=== PATIENT | male | born 1965 | race Caucasian/White ===

== ENCOUNTER 2017-07-18 07:46 | Emergency (ER) | payer SELFPAY ==
[~2017-07-18] VITALS: Ht 177.8 cm; Wt 86.2 kg
[2017-07-18] MEDS ORDERED: Ultram50 MG PO (10:28)
== END 2017-07-18 10:34 | disposition home or self-care (01) ==
LOC: ER 07:46
DX: S61.412A Laceration without foreign body of left hand, initial encounter (principal); Z23 Encounter for immunization; F17.210 Nicotine dependence, cigarettes, uncomplicated; W29.2XXA Contact with other powered household machinery, initial encounter
CPT/HCPCS: 12004; 90471; 90714; 99283; L3917

== ENCOUNTER 2017-09-26 20:40 | Emergency (ER) | payer MEDICAID ==
[~2017-09-26] VITALS: Ht 180.3 cm; Wt 101.6 kg
[~2017-09-26 20:40] MED LIST: Ultram50 MG PO
[2017-09-26] MEDS ORDERED: Neurontin 300300 MG PO (23:09)
[2017-09-26] MEDS ORDERED: Naprosyn500 MG PO (23:09)
== END 2017-09-26 23:19 | disposition home or self-care (01) ==
LOC: ER 20:40
DX: M54.12 Radiculopathy, cervical region (principal)
CPT/HCPCS: 72040; 99283-25

== ENCOUNTER 2019-01-28 08:09 | Emergency (ER) | payer SELFPAY ==
[~2019-01-28] VITALS: Ht 180.3 cm; Wt 99.8 kg
[~2019-01-28 08:09] MED LIST changes: +Anusol-HC 2.5%30 GM EXT; +Bactrim Ds Tab1 EACH PO; +Naprosyn500 MG PO; +Neurontin 300300 MG PO
[2019-01-28 09:37] LABS: BASOPHILS ABSOLUTE AUTO 0.07 K/mm3 (0.00-0.23); BASOPHILS PERCENT AUTO 1 % (0-2); EOSINOPHILS ABSOLUTE AUTO 0.11 K/mm3 (0.00-0.68); EOSINOPHILS PERCENT AUTO 1 % (0-6); Hemoglobin 13.7 g/dL (13.5-17.5); IMMATURE GRAN ABSOLUTE AUTO 0.02 K/mm3 (0.00-0.10); IMMATURE GRAN PERCENT AUTO 0 % (0-1); LYMPHOCYTES ABSOLUTE AUTO 2.84 K/mm3 (0.84-5.20); LYMPHOCYTES PERCENT AUTO 27 % (21-46); MONOCYTES ABSOLUTE AUTO 1.22 K/mm3 (0.16-1.47); MONOCYTES PERCENT AUTO 12 % (4-13); Mean Corpuscular HGB Conc 33.4 g/dL (31.5-36.5); Mean Corpuscular Volume 90 fL (80-100); Mean Platelet Volume 10.5 fL (9.1-12.4); NEUTROPHILS ABSOLUTE AUTO 6.37 K/mm3 (1.96-9.15); NEUTROPHILS PERCENT AUTO 60 % (41-73); Platelet Count 326 K/mm3 (150-400); RDW Coefficient Variation 12.9 % (11.7-14.2); RDW Standard Deviation 42.4 fL (35.1-46.3); Red Blood Cell Count 4.57 M/mm3 (4.30-5.90); White Blood Cell Count 10.63 K/mm3 (4.00-11.30)
[2019-01-28 09:51] LABS: Alanine Aminotransfer (ALT/SGP 19 U/L (12-78); Albumin, Blood 3.1 g/dL (3.4-5.0); Albumin/Globulin Ratio 0.7 (0.8-1.8); Alk Phos 71 U/L (50-136); Anion Gap 4 mmol/L (6-16); Aspartate Aminotrans (AST/SGOT 11 U/L (12-37); Bilirubin, Total 0.3 mg/dL (0.1-1.0); Blood Urea Nitrogen 12 mg/dL (8-24); Bun/Creatinine Ratio 14.8 (12.0-20.0); CO2, Blood 27 mmol/L (21-32); Calcium, Blood 8.8 mg/dL (8.5-10.1); Chloride, Blood 105 mmol/L (98-108); Creatinine, Blood 0.81 mg/dL (0.60-1.20); Globulin, Blood 4.2 g/dL (2.2-4.0); Glomerular Filtration Rate >60 (60-); Glucose, Blood 100 mg/dL (70-99); Potassium, Blood 3.5 mmol/L (3.5-5.5); Sodium, Blood 136 mmol/L (136-145); Total Protein, Blood 7.3 g/dL (6.4-8.2)
[2019-01-28] MEDS ORDERED: CEPH500 PO (10:06)
[2019-01-28] MEDS ORDERED: IBU800 MG PO (10:06)
[2019-01-28] MEDS ORDERED: Monodox100 MG PO (10:06)
== END 2019-01-28 11:01 | disposition home or self-care (01) ==
LOC: ER 08:09
PROVIDERS: Physician Assistant
DX: L03.114 Cellulitis of left upper limb (principal); F17.210 Nicotine dependence, cigarettes, uncomplicated
CPT/HCPCS: 36415; 73080; 80053; 83605; 85025; 96365; 96375; 99283-25; J1885; J2543

== ENCOUNTER 2019-11-27 17:31 | Emergency (ER) | payer SELFPAY ==
[~2019-11-27] VITALS: Ht 180.3 cm; Wt 99.8 kg
[~2019-11-27 17:31] MED LIST changes: +CEPH500 PO; +IBU800 MG PO; +Monodox100 MG PO
[2019-11-27] MEDS ORDERED: Aspir 8181 MG PO (18:05)
[2019-11-27] MEDS ORDERED: NAPR500 PO (18:06)
[2019-11-27] MEDS ORDERED: KEFLEX500 MG PO (18:13)
[2019-11-27] MEDS ORDERED: Bactrim Ds Tab1 EACH PO (18:13)
== END 2019-11-27 18:27 | disposition home or self-care (01) ==
LOC: ER 17:31
DX: L03.115 Cellulitis of right lower limb (principal); I10 Essential (primary) hypertension; F17.210 Nicotine dependence, cigarettes, uncomplicated; Z79.82 Long term (current) use of aspirin
CPT/HCPCS: 99283; A9270-GY

== ENCOUNTER 2020-11-23 02:31 | Emergency (ER) | payer SELFPAY ==
[~2020-11-23] VITALS: Ht 180.3 cm; Wt 90.7 kg
[~2020-11-23 02:31] MED LIST changes: +Aspir 8181 MG PO; +KEFLEX500 MG PO; +NAPR500 PO
[2020-11-23 03:45] LABS: SARS-Cov-2 (COVID-19) PCR, MMC NEGATIVE (NEGATIVE)
[2020-11-23] MEDS ORDERED: HYDCOR2.5C PR (05:05)
== END 2020-11-23 06:10 | disposition home or self-care (01) ==
LOC: ER 02:31
PROVIDERS: Emergency Medicine
DX: K62.5 Hemorrhage of anus and rectum (principal); K64.9 Unspecified hemorrhoids; I10 Essential (primary) hypertension; F17.210 Nicotine dependence, cigarettes, uncomplicated; Z20.822 Contact with and (suspected) exposure to COVID-19; Z79.82 Long term (current) use of aspirin
CPT/HCPCS: 72170; 74019; 99284-25; U0004

== ENCOUNTER 2021-06-19 12:54 | Inpatient (IN) | payer OTHER ==
[~2021-06-19] VITALS: Ht 180.3 cm; Wt 95.5 kg
[~2021-06-19 12:54] MED LIST changes: +HYDCOR2.5C PR
[2021-06-19 13:34] LABS: BASOPHILS ABSOLUTE AUTO 0.08 K/mm3 (0.00-0.23); BASOPHILS PERCENT AUTO 1 % (0-2); EOSINOPHILS PERCENT AUTO 1 % (0-6); Hematocrit 23.2 % (37.0-53.0); Hemoglobin 6.7 g/dL (13.5-17.5); IMMATURE GRAN ABSOLUTE AUTO 0.06 K/mm3 (0.00-0.10); IMMATURE GRAN PERCENT AUTO 0 % (0-1); LYMPHOCYTES ABSOLUTE AUTO 1.88 K/mm3 (0.84-5.20); LYMPHOCYTES PERCENT AUTO 14 % (21-46); MONOCYTES ABSOLUTE AUTO 0.93 K/mm3 (0.16-1.47); MONOCYTES PERCENT AUTO 7 % (4-13); Mean Corpuscular HGB 21.1 pg (26.0-34.0); Mean Corpuscular HGB Conc 28.9 g/dL (31.5-36.5); Mean Corpuscular Volume 73 fL (80-100); Mean Platelet Volume 9.4 fL (9.1-12.4); NEUTROPHILS ABSOLUTE AUTO 10.65 K/mm3 (1.96-9.15); NEUTROPHILS PERCENT AUTO 78 % (41-73); Platelet Count 674 K/mm3 (150-400); RDW Coefficient Variation 16.9 % (11.7-14.2); RDW Standard Deviation 44.5 fL (35.1-46.3); Red Blood Cell Count 3.18 M/mm3 (4.30-5.90)
[2021-06-19 13:51] LABS: Alanine Aminotransfer (ALT/SGP 10 U/L (12-78); Albumin, Blood 2.7 g/dL (3.4-5.0); Albumin/Globulin Ratio 0.5 (0.8-1.8); Alk Phos 90 U/L (50-136); Anion Gap 8 mmol/L (6-16); Aspartate Aminotrans (AST/SGOT 4 U/L (12-37); Bilirubin, Total 0.2 mg/dL (0.1-1.0); Blood Urea Nitrogen 9 mg/dL (8-24); Bun/Creatinine Ratio 12.5 (12.0-20.0); CO2, Blood 24 mmol/L (21-32); Calcium, Blood 8.9 mg/dL (8.5-10.1); Chloride, Blood 102 mmol/L (98-108); Creatinine, Blood 0.72 mg/dL (0.60-1.20); Globulin, Blood 5.3 g/dL (2.2-4.0); Glomerular Filtration Rate >60 (60-); Glucose, Blood 158 mg/dL (70-99); Potassium, Blood 3.5 mmol/L (3.5-5.5); Sodium, Blood 134 mmol/L (136-145)
[2021-06-19 15:26] LABS: Influenza A, PCR NEGATIVE (NEGATIVE); Influenza B, PCR NEGATIVE (NEGATIVE); Resp Syncytial Virus, PCR NEGATIVE (NEGATIVE); SARS-Cov-2 (COVID-19) PCR, MMC NEGATIVE (NEGATIVE)
[2021-06-19 18:30] LABS: BASOPHILS ABSOLUTE AUTO 0.06 K/mm3 (0.00-0.23); BASOPHILS PERCENT AUTO 0 % (0-2); EOSINOPHILS PERCENT AUTO 1 % (0-6); Hematocrit 20.4 % (37.0-53.0); IMMATURE GRAN ABSOLUTE AUTO 0.07 K/mm3 (0.00-0.10); IMMATURE GRAN PERCENT AUTO 1 % (0-1); LYMPHOCYTES ABSOLUTE AUTO 2.59 K/mm3 (0.84-5.20); LYMPHOCYTES PERCENT AUTO 18 % (21-46); MONOCYTES PERCENT AUTO 9 % (4-13); Mean Corpuscular HGB 20.6 pg (26.0-34.0); Mean Corpuscular HGB Conc 28.4 g/dL (31.5-36.5); Mean Corpuscular Volume 73 fL (80-100); Mean Platelet Volume 9.3 fL (9.1-12.4); NEUTROPHILS ABSOLUTE AUTO 10.03 K/mm3 (1.96-9.15); NEUTROPHILS PERCENT AUTO 72 % (41-73); Platelet Count 609 K/mm3 (150-400); RDW Coefficient Variation 16.8 % (11.7-14.2); RDW Standard Deviation 44.6 fL (35.1-46.3); Red Blood Cell Count 2.81 M/mm3 (4.30-5.90); White Blood Cell Count 14.05 K/mm3 (4.00-11.30)
[2021-06-19 18:33] LABS: Hemoglobin 5.8 g/dL (13.5-17.5)
[2021-06-19 21:42] LABS: Hemoglobin 6.4 g/dL (13.5-17.5)
[2021-06-20 02:09] LABS: BASOPHILS ABSOLUTE AUTO 0.07 K/mm3 (0.00-0.23); BASOPHILS PERCENT AUTO 1 % (0-2); EOSINOPHILS ABSOLUTE AUTO 0.19 K/mm3 (0.00-0.68); EOSINOPHILS PERCENT AUTO 2 % (0-6); Hematocrit 23.1 % (37.0-53.0); Hemoglobin 7.1 g/dL (13.5-17.5); IMMATURE GRAN ABSOLUTE AUTO 0.08 K/mm3 (0.00-0.10); IMMATURE GRAN PERCENT AUTO 1 % (0-1); LYMPHOCYTES ABSOLUTE AUTO 2.28 K/mm3 (0.84-5.20); LYMPHOCYTES PERCENT AUTO 19 % (21-46); MONOCYTES ABSOLUTE AUTO 1.22 K/mm3 (0.16-1.47); MONOCYTES PERCENT AUTO 10 % (4-13); Mean Corpuscular HGB 22.8 pg (26.0-34.0); Mean Corpuscular HGB Conc 30.7 g/dL (31.5-36.5); Mean Corpuscular Volume 74 fL (80-100); Mean Platelet Volume 9.7 fL (9.1-12.4); NEUTROPHILS ABSOLUTE AUTO 7.93 K/mm3 (1.96-9.15); NEUTROPHILS PERCENT AUTO 67 % (41-73); Platelet Count 568 K/mm3 (150-400); RDW Standard Deviation 47.6 fL (35.1-46.3); Red Blood Cell Count 3.12 M/mm3 (4.30-5.90); White Blood Cell Count 11.77 K/mm3 (4.00-11.30)
--- NOTE | 2021-06-20 03:20 | NUR ---
PT IS A&OX4, VSS, INDEPENDENT WITH ADLS AND IS ABLE TO MAKED NEEDS KNOWN. PT ARRIVES TO SURGICAL FLOOR FROM THE ED FOR AN ABSCESS AND POSSIBLE GI BLEED. H&H WAS 5.8 IN THE ED, 1 UNIT OF PRBC STARTED PRIOR TO ARRIVAL, 1 UNIT GIVEN ON THE FLOOR. H&H IS 7.1 UPON RECHECK. PT IS DROWSEY AND SLEEPS MOST OF THE NIGHT. ON CIWA FOR ALCOHOL USE, LOW SCORES, NO ATIVAN NEEDED. PT HAS BEEN NPO SINCE MIDNIGHT. WILL CONTINUE TO MONITOR THIS PATIENT FOR ANY ACUTE CHANGES.
[2021-06-20 04:38] LABS: Alanine Aminotransfer (ALT/SGP 9 U/L (12-78); Albumin, Blood 2.3 g/dL (3.4-5.0); Albumin/Globulin Ratio 0.5 (0.8-1.8); Alk Phos 74 U/L (50-136); Anion Gap 6 mmol/L (6-16); Aspartate Aminotrans (AST/SGOT 6 U/L (12-37); Bilirubin, Total 0.8 mg/dL (0.1-1.0); Blood Urea Nitrogen 7 mg/dL (8-24); CO2, Blood 24 mmol/L (21-32); Calcium, Blood 8.5 mg/dL (8.5-10.1); Chloride, Blood 108 mmol/L (98-108); Globulin, Blood 4.6 g/dL (2.2-4.0); Glomerular Filtration Rate >60 (60-); Glucose, Blood 99 mg/dL (70-99); Magnesium, Blood 2.2 mg/dL (1.6-2.4); Phosphorus, Blood 2.8 mg/dL (2.5-4.9); Potassium, Blood 3.9 mmol/L (3.5-5.5); Sodium, Blood 138 mmol/L (136-145); Total Protein, Blood 6.9 g/dL (6.4-8.2)
[2021-06-20 13:49] LABS: Hemoglobin 7.7 g/dL (13.5-17.5); Mean Corpuscular HGB 22.8 pg (26.0-34.0); Mean Corpuscular HGB Conc 30.8 g/dL (31.5-36.5); Mean Corpuscular Volume 74 fL (80-100); Mean Platelet Volume 9.1 fL (9.1-12.4); Platelet Count 587 K/mm3 (150-400); RDW Coefficient Variation 17.9 % (11.7-14.2); RDW Standard Deviation 47.8 fL (35.1-46.3); Red Blood Cell Count 3.37 M/mm3 (4.30-5.90); White Blood Cell Count 10.55 K/mm3 (4.00-11.30)
--- NOTE | 2021-06-20 14:03 | NUR ---
SURGICAL SITE INFECTION PREVENTION INCLUDING CHG WIPES SHOULDER TO TOES, NOZIN NASAL SWAB TO BOTH NARES, & PREIDEX ORAL RINSE HAS BEEN COMPLEETD BY THIS RN.
--- NOTE | 2021-06-20 15:32 | NUR ---
PT TO OR ABOUT 1400 FOR I&D OF ABCESS TO R THIGH. PT RETURNED TO ROOM AT 1520, VSS ON RA. STAND & PIVOT FROM GURNEY TO BED. GAUZE DRESSING WRAPPED AROUND R THIGH, C/D/I. PT REPORTS MILD PAIN THAT IS A BURNING SENSATION, DENIES NEED FOR PAIN MEDS AT THIS TIME.
[2021-06-20 17:48] LABS: Vancomycin, Trough 9.9 ug/mL (5.0-10.0)
--- NOTE | 2021-06-20 18:42 | NUR ---
NO ACUTE CHANGES SINCE ARRIVAL BACK FROM OR. VSS ON RA. DAVIDE IN PLACE TO R THIGH. TOLERATINIG PO INTAKE WELL, RESTING IN BED. WILL REPORT TO ONCOMING RN.
[2021-06-21 04:46] LABS: BASOPHILS ABSOLUTE AUTO 0.08 K/mm3 (0.00-0.23); BASOPHILS PERCENT AUTO 1 % (0-2); EOSINOPHILS ABSOLUTE AUTO 0.26 K/mm3 (0.00-0.68); EOSINOPHILS PERCENT AUTO 3 % (0-6); Hematocrit 26.5 % (37.0-53.0); Hemoglobin 7.7 g/dL (13.5-17.5); IMMATURE GRAN ABSOLUTE AUTO 0.03 K/mm3 (0.00-0.10); IMMATURE GRAN PERCENT AUTO 0 % (0-1); LYMPHOCYTES ABSOLUTE AUTO 2.41 K/mm3 (0.84-5.20); LYMPHOCYTES PERCENT AUTO 29 % (21-46); MONOCYTES ABSOLUTE AUTO 0.72 K/mm3 (0.16-1.47); MONOCYTES PERCENT AUTO 9 % (4-13); Mean Corpuscular HGB 22.3 pg (26.0-34.0); Mean Corpuscular HGB Conc 29.1 g/dL (31.5-36.5); Mean Corpuscular Volume 77 fL (80-100); Mean Platelet Volume 9.7 fL (9.1-12.4); NEUTROPHILS ABSOLUTE AUTO 4.81 K/mm3 (1.96-9.15); NEUTROPHILS PERCENT AUTO 58 % (41-73); Platelet Count 555 K/mm3 (150-400); RDW Coefficient Variation 18.1 % (11.7-14.2); RDW Standard Deviation 49.6 fL (35.1-46.3); Red Blood Cell Count 3.46 M/mm3 (4.30-5.90); White Blood Cell Count 8.31 K/mm3 (4.00-11.30)
[2021-06-21 05:06] LABS: Alanine Aminotransfer (ALT/SGP 8 U/L (12-78); Albumin, Blood 2.3 g/dL (3.4-5.0); Albumin/Globulin Ratio 0.5 (0.8-1.8); Alk Phos 82 U/L (50-136); Anion Gap 4 mmol/L (6-16); Aspartate Aminotrans (AST/SGOT 8 U/L (12-37); Bilirubin, Total 0.4 mg/dL (0.1-1.0); Blood Urea Nitrogen 9 mg/dL (8-24); Bun/Creatinine Ratio 14.3 (12.0-20.0); CO2, Blood 26 mmol/L (21-32); Calcium, Blood 8.8 mg/dL (8.5-10.1); Chloride, Blood 108 mmol/L (98-108); Creatinine, Blood 0.63 mg/dL (0.60-1.20); Globulin, Blood 4.9 g/dL (2.2-4.0); Glomerular Filtration Rate >60 (60-); Glucose, Blood 100 mg/dL (70-99); Magnesium, Blood 2.3 mg/dL (1.6-2.4); Phosphorus, Blood 3.4 mg/dL (2.5-4.9); Potassium, Blood 3.9 mmol/L (3.5-5.5); Sodium, Blood 138 mmol/L (136-145); Total Protein, Blood 7.2 g/dL (6.4-8.2)
--- NOTE | 2021-06-21 05:54 | NUR ---
SHIFT SUMMARY: SUE IS A&O X 4. VSS, NO ACUTE EVENTS OVERNIGHT. HE DENIES PAIN, IS TOLERATING PO INTAKE WELL, AND IS USING THE URINAL WITHOUT DIFFICULTY. HIS DRESSING DID SHIFT AND REQUIRE REINFORCING, SEROSAGNIOUS FLUID NOTED ON DRESSING. HE DID HAVE AN EPISDE THIS SHIFT WHEN HE BECAME TEARFUL AND SHARED THAT HIS SON (WHO WAS BORN AT [facility]) WAS MURDERED APPROXIMATELY THREE MONTHS AGO WHICH IS DIFFICULT FROM [place]ERY TO COPE WITH. HE IS A ONE PERSON STANDBY ASSIST TO THE BEDSIDE [id number]. HE IS LYING IN BED WITH THE CALL LIGHT IN REACH. WILL CONTINUE TO MONITOR UNTIL REPORT IS GIVEN TO DAY SHIFT RN.
--- NOTE | 2021-06-21 10:00 | NUR ---
GAUZE DREESING TO R LEG HAD SLID DOWN PATIENTS LEG. REMOVED OLD GAUZE AND REPLACED DRESSING W/ STERILE 4X4 GAUZE & GAUZE WRAP.
[2021-06-21] MEDS ORDERED: TRAM50 PO (14:09)
--- NOTE | 2021-06-21 14:40 | NUR ---
DISCHARGE SMALL GAUZE DRESSING W/ TEGADERM IN PLACE TO WOUND ON R THIGH, C/D/I, S/P I&D. VSS ON RA. TOLERATING PO WELL, VOIDING WELL, AMBULATING INDEPENDENTLY, DENIES PAIN AT THIS TIME. DISCUSSED DISCHARGE INSTRUCTIONS & SENT RX W/ PATIENT. ESCORTED OUT VIA W/C.
== END 2021-06-21 14:30 | disposition home or self-care (01) | DRG 872 ==
LOC: ER 12:54 → SURS 12:55
PROVIDERS: Hospitalist; Physician Assistant; Student in an Organized Health Care Education/Training Program; Surgery; ADMIT Family Medicine
PROC: 30233N1 Transfusion of Nonautologous Red Blood Cells into Peripheral Vein, Percutaneous Approach (ICD-10-PCS; 2021-06-19)
PROC: 3E03329 Introduction of Other Anti-infective into Peripheral Vein, Percutaneous Approach (ICD-10-PCS; 2021-06-19)
PROC: 0J9L0ZZ Drainage of Right Upper Leg Subcutaneous Tissue and Fascia, Open Approach (ICD-10-PCS; principal; 2021-06-20 14:00)
DX: A41.9 Sepsis, unspecified organism (principal); L02.415 Cutaneous abscess of right lower limb; K92.1 Melena; E87.1 Hypo-osmolality and hyponatremia; Z20.822 Contact with and (suspected) exposure to COVID-19; K64.9 Unspecified hemorrhoids; E11.65 Type 2 diabetes mellitus with hyperglycemia; D64.9 Anemia, unspecified; I10 Essential (primary) hypertension; F11.10 Opioid abuse, uncomplicated; K70.30 Alcoholic cirrhosis of liver without ascites; F15.10 Other stimulant abuse, uncomplicated; F10.20 Alcohol dependence, uncomplicated; F17.210 Nicotine dependence, cigarettes, uncomplicated; Z88.5 Allergy status to narcotic agent; Z79.82 Long term (current) use of aspirin; Z79.899 Other long term (current) drug therapy; Z71.6 Tobacco abuse counseling; Z71.51 Drug abuse counseling and surveillance of drug abuser
CPT/HCPCS: 0241U; 36415; 36430; 73701; 76882; 80053; 80202; 82272; 83605; 83735; 84100; 85014; 85018; 85025; 85027; 86850; 86900; 86901; 86920; 86923; 87040; 93005; 93010; 94762; 96365; 96366; 96375; 99285-25; A9270; C9113; J0696; J1650; J2250; J2704; J3010; J3370; J7030; J7050; J7120; P9016; Q9967

== ENCOUNTER 2021-08-17 13:12 | Emergency (ER) | payer OTHER ==
[~2021-08-17] VITALS: Ht 180.3 cm; Wt 95.2 kg
[~2021-08-17 13:12] MED LIST changes: +PRAHYD1AEA PR; +TRAM50 PO
[2021-08-17 14:05] LABS: BASOPHILS ABSOLUTE AUTO 0.09 K/mm3 (0.00-0.23); BASOPHILS PERCENT AUTO 1 % (0-2); EOSINOPHILS PERCENT AUTO 2 % (0-6); Hematocrit 27.6 % (37.0-53.0); Hemoglobin 7.6 g/dL (13.5-17.5); IMMATURE GRAN ABSOLUTE AUTO 0.03 K/mm3 (0.00-0.10); IMMATURE GRAN PERCENT AUTO 0 % (0-1); LYMPHOCYTES ABSOLUTE AUTO 2.96 K/mm3 (0.84-5.20); LYMPHOCYTES PERCENT AUTO 28 % (21-46); MONOCYTES ABSOLUTE AUTO 0.85 K/mm3 (0.16-1.47); MONOCYTES PERCENT AUTO 8 % (4-13); Mean Corpuscular HGB 18.5 pg (26.0-34.0); Mean Corpuscular HGB Conc 27.5 g/dL (31.5-36.5); Mean Corpuscular Volume 67 fL (80-100); Mean Platelet Volume 9.2 fL (9.1-12.4); NEUTROPHILS ABSOLUTE AUTO 6.32 K/mm3 (1.96-9.15); NEUTROPHILS PERCENT AUTO 61 % (41-73); Platelet Count 657 K/mm3 (150-400); RDW Coefficient Variation 19.6 % (11.7-14.2); RDW Standard Deviation 46.6 fL (35.1-46.3); Red Blood Cell Count 4.11 M/mm3 (4.30-5.90); White Blood Cell Count 10.45 K/mm3 (4.00-11.30)
[2021-08-17 14:20] LABS: Albumin, Blood 2.9 g/dL (3.4-5.0); Albumin/Globulin Ratio 0.5 (0.8-1.8); Bilirubin, Total 0.3 mg/dL (0.1-1.0); Bun/Creatinine Ratio 11.1 (12.0-20.0); Creatinine, Blood 0.72 mg/dL (0.60-1.20); Globulin, Blood 5.4 g/dL (2.2-4.0); Potassium, Blood 3.9 mmol/L (3.5-5.5); Total Protein, Blood 8.3 g/dL (6.4-8.2)
[2021-08-17 15:35] LABS: Source, Urine Clean Catch
[2021-08-17 15:54] LABS: Appearance, Urine Clear (Clear); Bilirubin, Urine Neg (Neg); Blood, Urine Neg (Neg); Color, Urine Yellow (P-Yellow); Glucose Qualitative, Urine Neg (Neg); Ketones, Urine Neg (Neg); Leukocyte Esterase, Urine Neg (Neg); Nitrite, Urine Neg (Neg); Protein, Urine Neg (Neg); Urobilinogen, Urine NORM (Normal)
[2021-08-17] MEDS ORDERED: HYDACE25S PR ×2 (21:45→21:47)
== END 2021-08-17 22:00 | disposition home or self-care (01) ==
LOC: ER 13:12
PROVIDERS: Physician Assistant
DX: R19.7 Diarrhea, unspecified (principal); K64.8 Other hemorrhoids; I10 Essential (primary) hypertension; F17.210 Nicotine dependence, cigarettes, uncomplicated; K64.4 Residual hemorrhoidal skin tags
CPT/HCPCS: 36415; 80053; 81003; 85025; A9270

== ENCOUNTER 2021-09-23 08:26 | Emergency (ER) | payer OTHER ==
[~2021-09-23] VITALS: Ht 180.3 cm; Wt 99.8 kg
[~2021-09-23 08:26] MED LIST changes: +HYDACE25S PR
[2021-09-23 09:36] LABS: BASOPHILS ABSOLUTE AUTO 0.09 K/mm3 (0.00-0.23); BASOPHILS PERCENT AUTO 1 % (0-2); EOSINOPHILS ABSOLUTE AUTO 0.22 K/mm3 (0.00-0.68); EOSINOPHILS PERCENT AUTO 3 % (0-6); Hematocrit 25.5 % (37.0-53.0); Hemoglobin 6.7 g/dL (13.5-17.5); IMMATURE GRAN ABSOLUTE AUTO 0.02 K/mm3 (0.00-0.10); IMMATURE GRAN PERCENT AUTO 0 % (0-1); LYMPHOCYTES PERCENT AUTO 21 % (21-46); MONOCYTES ABSOLUTE AUTO 0.72 K/mm3 (0.16-1.47); MONOCYTES PERCENT AUTO 9 % (4-13); Mean Corpuscular HGB 16.8 pg (26.0-34.0); Mean Corpuscular HGB Conc 26.3 g/dL (31.5-36.5); Mean Corpuscular Volume 64 fL (80-100); Mean Platelet Volume 9.5 fL (9.1-12.4); NEUTROPHILS ABSOLUTE AUTO 5.63 K/mm3 (1.96-9.15); NEUTROPHILS PERCENT AUTO 66 % (41-73); Platelet Count 457 K/mm3 (150-400); RDW Coefficient Variation 19.1 % (11.7-14.2); RDW Standard Deviation 43.8 fL (35.1-46.3); Red Blood Cell Count 3.98 M/mm3 (4.30-5.90); White Blood Cell Count 8.48 K/mm3 (4.00-11.30)
[2021-09-23 09:44] LABS: Albumin/Globulin Ratio 0.6 (0.8-1.8); Bilirubin, Total 0.2 mg/dL (0.1-1.0); Bun/Creatinine Ratio 14.6 (12.0-20.0); Calcium, Blood 8.6 mg/dL (8.5-10.1); Creatinine, Blood 0.69 mg/dL (0.60-1.20); Globulin, Blood 4.9 g/dL (2.2-4.0); Potassium, Blood 3.9 mmol/L (3.5-5.5); Total Protein, Blood 7.9 g/dL (6.4-8.2)
[2021-09-23] MEDS ORDERED: HYDACE25S PR (11:29)
[2021-09-23] MEDS ORDERED: Colace250 MG PO (11:29)
== END 2021-09-23 14:50 | disposition home or self-care (01) ==
LOC: ER 08:26
PROVIDERS: Physician Assistant
DX: D64.9 Anemia, unspecified (principal); K64.9 Unspecified hemorrhoids; I10 Essential (primary) hypertension; F17.210 Nicotine dependence, cigarettes, uncomplicated
CPT/HCPCS: 36415; 36430; 80053; 85025; 86850; 86900; 86901; 86923; 99283; J7030; P9016

== ENCOUNTER 2022-03-04 16:49 | Emergency (ER) | payer OTHER ==
[~2022-03-04] VITALS: Ht 180.3 cm; Wt 102.1 kg
[~2022-03-04 16:49] MED LIST changes: +ABILIFY MYCITE2 M2; +Colace250 MG PO
[2022-03-04 17:59] LABS: BASOPHILS PERCENT AUTO 1 % (0-2); EOSINOPHILS ABSOLUTE AUTO 0.28 K/mm3 (0.00-0.68); EOSINOPHILS PERCENT AUTO 3 % (0-6); Hemoglobin 8.6 g/dL (13.5-17.5); IMMATURE GRAN ABSOLUTE AUTO 0.03 K/mm3 (0.00-0.10); IMMATURE GRAN PERCENT AUTO 0 % (0-1); LYMPHOCYTES ABSOLUTE AUTO 3.07 K/mm3 (0.84-5.20); LYMPHOCYTES PERCENT AUTO 33 % (21-46); MONOCYTES ABSOLUTE AUTO 0.97 K/mm3 (0.16-1.47); MONOCYTES PERCENT AUTO 10 % (4-13); Mean Corpuscular HGB 20.6 pg (26.0-34.0); Mean Corpuscular HGB Conc 29.7 g/dL (31.5-36.5); Mean Corpuscular Volume 69 fL (80-100); Mean Platelet Volume 9.5 fL (9.1-12.4); NEUTROPHILS ABSOLUTE AUTO 5.01 K/mm3 (1.96-9.15); NEUTROPHILS PERCENT AUTO 53 % (41-73); Platelet Count 454 K/mm3 (150-400); RDW Coefficient Variation 19.7 % (11.7-14.2); RDW Standard Deviation 49.7 fL (35.1-46.3); Red Blood Cell Count 4.18 M/mm3 (4.30-5.90); White Blood Cell Count 9.46 K/mm3 (4.00-11.30)
[2022-03-04 18:17] LABS: Albumin/Globulin Ratio 0.7 (0.8-1.8); Bilirubin, Total 0.2 mg/dL (0.1-1.0); Bun/Creatinine Ratio 12.3 (12.0-20.0); Calcium, Blood 8.9 mg/dL (8.5-10.1); Creatinine, Blood 0.73 mg/dL (0.60-1.20); Globulin, Blood 4.3 g/dL (2.2-4.0); Potassium, Blood 4.2 mmol/L (3.5-5.5); Total Protein, Blood 7.3 g/dL (6.4-8.2)
== END 2022-03-05 01:05 | disposition home or self-care (01) ==
LOC: ER 16:49
PROVIDERS: Physician Assistant
DX: D64.9 Anemia, unspecified (principal); K64.8 Other hemorrhoids; I10 Essential (primary) hypertension; Z79.899 Other long term (current) drug therapy; F17.210 Nicotine dependence, cigarettes, uncomplicated
CPT/HCPCS: 80053; 85025; 86850; 86900; 86901

== ENCOUNTER 2022-04-22 18:17 | Emergency (ER) | payer OTHER ==
[~2022-04-22] VITALS: Ht 180.3 cm; Wt 98.9 kg
== END 2022-04-23 00:15 | disposition home or self-care (01) ==
LOC: ER 18:17
DX: D64.9 Anemia, unspecified (principal); I10 Essential (primary) hypertension; F17.210 Nicotine dependence, cigarettes, uncomplicated
CPT/HCPCS: 36430; 86850; 86900; 86901; 86923; 99283-25; J7030; P9016

== ENCOUNTER 2022-08-25 18:03 | Emergency (ER) | payer OTHER ==
[~2022-08-25] VITALS: Ht 180.3 cm; Wt 96.2 kg
[2022-08-25 18:48] LABS: BASOPHILS ABSOLUTE AUTO 0.07 K/mm3 (0.00-0.23); BASOPHILS PERCENT AUTO 1 % (0-2); EOSINOPHILS ABSOLUTE AUTO 0.09 K/mm3 (0.00-0.68); EOSINOPHILS PERCENT AUTO 1 % (0-6); Hematocrit 27.1 % (37.0-53.0); Hemoglobin 7.5 g/dL (13.5-17.5); IMMATURE GRAN ABSOLUTE AUTO 0.02 K/mm3 (0.00-0.10); IMMATURE GRAN PERCENT AUTO 0 % (0-1); LYMPHOCYTES ABSOLUTE AUTO 2.13 K/mm3 (0.84-5.20); LYMPHOCYTES PERCENT AUTO 30 % (21-46); MONOCYTES ABSOLUTE AUTO 0.57 K/mm3 (0.16-1.47); MONOCYTES PERCENT AUTO 8 % (4-13); Mean Corpuscular HGB 17.6 pg (26.0-34.0); Mean Corpuscular HGB Conc 27.7 g/dL (31.5-36.5); Mean Corpuscular Volume 64 fL (80-100); Mean Platelet Volume 9.4 fL (9.1-12.4); NEUTROPHILS ABSOLUTE AUTO 4.29 K/mm3 (1.96-9.15); NEUTROPHILS PERCENT AUTO 60 % (41-73); Platelet Count 555 K/mm3 (150-400); RDW Coefficient Variation 18.3 % (11.7-14.2); RDW Standard Deviation 41.1 fL (35.1-46.3); Red Blood Cell Count 4.26 M/mm3 (4.30-5.90); White Blood Cell Count 7.17 K/mm3 (4.00-11.30)
[2022-08-25 19:15] LABS: Albumin, Blood 3.5 g/dL (3.4-5.0); Albumin/Globulin Ratio 0.8 (0.8-1.8); Bilirubin, Total 0.3 mg/dL (0.1-1.0); Bun/Creatinine Ratio 13.2 (12.0-20.0); Calcium, Blood 9.2 mg/dL (8.5-10.1); Creatinine, Blood 0.68 mg/dL (0.60-1.20); Globulin, Blood 4.5 g/dL (2.2-4.0); Potassium, Blood 4.3 mmol/L (3.5-5.5)
[2022-08-26 00:45] VITALS: BP 120/86
== END 2022-08-26 01:14 | disposition home or self-care (01) ==
LOC: ER 18:03
PROVIDERS: Emergency Medicine
DX: K92.2 Gastrointestinal hemorrhage, unspecified (principal); D64.9 Anemia, unspecified; R06.02 Shortness of breath; R42 Dizziness and giddiness; I10 Essential (primary) hypertension; F17.210 Nicotine dependence, cigarettes, uncomplicated
CPT/HCPCS: 80053; 85025; 86850; 86900; 86901; 86923; 93005; 93010; J7030; P9016

== ENCOUNTER 2022-11-29 18:29 | Emergency (ER) | payer OTHER ==
[~2022-11-29] VITALS: Ht 180.3 cm; Wt 99.8 kg
[2022-11-29 21:20] LABS: BASOPHILS ABSOLUTE AUTO 0.07 K/mm3 (0.00-0.23); BASOPHILS PERCENT AUTO 1 % (0-2); EOSINOPHILS ABSOLUTE AUTO 0.13 K/mm3 (0.00-0.68); EOSINOPHILS PERCENT AUTO 1 % (0-6); Hematocrit 24.8 % (37.0-53.0); Hemoglobin 6.7 g/dL (13.5-17.5); IMMATURE GRAN ABSOLUTE AUTO 0.03 K/mm3 (0.00-0.10); IMMATURE GRAN PERCENT AUTO 0 % (0-1); LYMPHOCYTES ABSOLUTE AUTO 2.15 K/mm3 (0.84-5.20); LYMPHOCYTES PERCENT AUTO 19 % (21-46); MONOCYTES ABSOLUTE AUTO 0.98 K/mm3 (0.16-1.47); MONOCYTES PERCENT AUTO 9 % (4-13); Mean Corpuscular HGB 16.9 pg (26.0-34.0); Mean Corpuscular Volume 63 fL (80-100); Mean Platelet Volume 9.7 fL (9.1-12.4); NEUTROPHILS PERCENT AUTO 71 % (41-73); Platelet Count 485 K/mm3 (150-400); RDW Coefficient Variation 19.5 % (11.7-14.2); RDW Standard Deviation 42.6 fL (35.1-46.3); Red Blood Cell Count 3.96 M/mm3 (4.30-5.90); White Blood Cell Count 11.36 K/mm3 (4.00-11.30)
[2022-11-29 21:37] LABS: Bun/Creatinine Ratio 12.2 (12.0-20.0); Calcium, Blood 8.9 mg/dL (8.5-10.1); Creatinine, Blood 0.9 mg/dL (0.60-1.20); Potassium, Blood 4.3 mmol/L (3.5-5.5)
[2022-11-30] MEDS ORDERED: HYDR25SUP PR (00:57)
[2022-11-30] MEDS ORDERED: DOCU100 PO (00:57)
[2022-11-30 05:27] VITALS: BP 109/65
== END 2022-11-30 06:44 | disposition home or self-care (01) ==
LOC: ER 18:29
PROVIDERS: Emergency Medicine
DX: K64.4 Residual hemorrhoidal skin tags (principal); I10 Essential (primary) hypertension; F17.210 Nicotine dependence, cigarettes, uncomplicated
CPT/HCPCS: 36430; 74177; 80048; 85025; 86850; 86900; 86901; 86923; 96374-59; 99284-25; A9270; J1885; J7030; P9016; Q9967

== ENCOUNTER 2023-09-05 20:40 | Emergency (ER) | payer OTHER ==
[~2023-09-05] VITALS: Ht 180.3 cm; Wt 87.5 kg
[~2023-09-05 20:40] MED LIST changes: +DOCU100 PO; +HYDR25SUP PR
[2023-09-05 21:20] LABS: BASOPHILS ABSOLUTE AUTO 0.13 K/mm3 (0.00-0.23); BASOPHILS PERCENT AUTO 1 % (0-2); EOSINOPHILS ABSOLUTE AUTO 0.16 K/mm3 (0.00-0.68); EOSINOPHILS PERCENT AUTO 2 % (0-6); IMMATURE GRAN PERCENT AUTO 0 % (0-1); LYMPHOCYTES ABSOLUTE AUTO 3.18 K/mm3 (0.84-5.20); LYMPHOCYTES PERCENT AUTO 35 % (21-46); MONOCYTES ABSOLUTE AUTO 0.83 K/mm3 (0.16-1.47); MONOCYTES PERCENT AUTO 9 % (4-13); Mean Corpuscular HGB 24.6 pg (26.0-34.0); Mean Corpuscular HGB Conc 30.6 g/dL (31.5-36.5); Mean Corpuscular Volume 80 fL (80-100); Mean Platelet Volume 10.3 fL (9.1-12.4); NEUTROPHILS ABSOLUTE AUTO 4.89 K/mm3 (1.96-9.15); NEUTROPHILS PERCENT AUTO 53 % (41-73); Platelet Count 418 K/mm3 (150-400); RDW Coefficient Variation 19.8 % (11.7-14.2); RDW Standard Deviation 57.8 fL (35.1-46.3); Red Blood Cell Count 4.48 M/mm3 (4.30-5.90); White Blood Cell Count 9.19 K/mm3 (4.00-11.30)
[2023-09-05 21:40] LABS: Albumin, Blood 3.6 g/dL (3.4-5.0); Albumin/Globulin Ratio 0.8 (0.8-1.8); Bilirubin, Total 0.3 mg/dL (0.1-1.0); Bun/Creatinine Ratio 17.2 (12.0-20.0); Calcium, Blood 9.4 mg/dL (8.5-10.1); Creatinine, Blood 0.93 mg/dL (0.60-1.20); Globulin, Blood 4.3 g/dL (2.2-4.0); Potassium, Blood 4.2 mmol/L (3.5-5.5); Total Protein, Blood 7.9 g/dL (6.4-8.2)
[2023-09-06] MEDS ORDERED: FERSU300 PO (00:10)
[2023-09-06 00:15] VITALS: BP 121/95
== END 2023-09-06 00:47 | disposition home or self-care (01) ==
LOC: ER 20:40
PROVIDERS: Student in an Organized Health Care Education/Training Program
DX: D50.9 Iron deficiency anemia, unspecified (principal); R42 Dizziness and giddiness; K92.1 Melena; Z59.00 Homelessness unspecified; F17.210 Nicotine dependence, cigarettes, uncomplicated; I10 Essential (primary) hypertension
CPT/HCPCS: 80053; 85025; 86850; 86900; 86901; 93005; 93010; 99284-25

== ENCOUNTER 2024-03-26 15:10 | Emergency (ER) | payer OTHER ==
[~2024-03-26] VITALS: Ht 180.3 cm; Wt 81.7 kg
[~2024-03-26 15:10] MED LIST changes: +FERSU300 PO
[2024-03-26 15:31] LABS: BASOPHILS ABSOLUTE AUTO 0.09 K/mm3 (0.00-0.23); BASOPHILS PERCENT AUTO 1 % (0-2); EOSINOPHILS ABSOLUTE AUTO 0.16 K/mm3 (0.00-0.68); EOSINOPHILS PERCENT AUTO 2 % (0-6); Hemoglobin 11.7 g/dL (13.5-17.5); IMMATURE GRAN ABSOLUTE AUTO 0.04 K/mm3 (0.00-0.10); IMMATURE GRAN PERCENT AUTO 0 % (0-1); LYMPHOCYTES ABSOLUTE AUTO 2.07 K/mm3 (0.84-5.20); LYMPHOCYTES PERCENT AUTO 20 % (21-46); MONOCYTES ABSOLUTE AUTO 0.81 K/mm3 (0.16-1.47); MONOCYTES PERCENT AUTO 8 % (4-13); Mean Corpuscular HGB 25.8 pg (26.0-34.0); Mean Corpuscular HGB Conc 31.6 g/dL (31.5-36.5); Mean Corpuscular Volume 82 fL (80-100); Mean Platelet Volume 9.6 fL (9.1-12.4); NEUTROPHILS ABSOLUTE AUTO 7.09 K/mm3 (1.96-9.15); NEUTROPHILS PERCENT AUTO 69 % (41-73); Platelet Count 562 K/mm3 (150-400); RDW Coefficient Variation 17.3 % (11.7-14.2); RDW Standard Deviation 51.7 fL (35.1-46.3); Red Blood Cell Count 4.53 M/mm3 (4.30-5.90); White Blood Cell Count 10.26 K/mm3 (4.00-11.30)
[2024-03-26 16:04] LABS: Albumin, Blood 2.8 g/dL (3.4-5.0); Albumin/Globulin Ratio 0.6 (0.8-1.8); Bilirubin, Total 0.2 mg/dL (0.1-1.0); Bun/Creatinine Ratio 14.2 (12.0-20.0); Calcium, Blood 9.1 mg/dL (8.5-10.1); Creatinine, Blood 0.85 mg/dL (0.60-1.20); Potassium, Blood 4.6 mmol/L (3.5-5.5); Total Protein, Blood 7.8 g/dL (6.4-8.2)
[2024-03-26 20:53] VITALS: BP 130/62
== END 2024-03-26 21:52 | disposition home or self-care (01) ==
LOC: ER 15:10
PROVIDERS: Emergency Medicine
DX: K62.5 Hemorrhage of anus and rectum (principal); F17.200 Nicotine dependence, unspecified, uncomplicated
CPT/HCPCS: 80053; 82272; 83690; 85025; 99283

== ENCOUNTER 2024-07-09 16:35 | Emergency (ER) | payer OTHER ==
[~2024-07-09] VITALS: Ht 180.3 cm; Wt 81.7 kg
[2024-07-09 17:10] LABS: BASOPHILS ABSOLUTE AUTO 0.11 K/mm3 (0.00-0.23); BASOPHILS PERCENT AUTO 1 % (0-2); EOSINOPHILS ABSOLUTE AUTO 0.09 K/mm3 (0.00-0.68); EOSINOPHILS PERCENT AUTO 1 % (0-6); Hemoglobin 9.2 g/dL (13.5-17.5); IMMATURE GRAN ABSOLUTE AUTO 0.04 K/mm3 (0.00-0.10); IMMATURE GRAN PERCENT AUTO 0 % (0-1); LYMPHOCYTES ABSOLUTE AUTO 1.93 K/mm3 (0.84-5.20); LYMPHOCYTES PERCENT AUTO 14 % (21-46); MONOCYTES ABSOLUTE AUTO 1.12 K/mm3 (0.16-1.47); MONOCYTES PERCENT AUTO 8 % (4-13); Mean Corpuscular HGB 19.6 pg (26.0-34.0); Mean Corpuscular HGB Conc 27.9 g/dL (31.5-36.5); Mean Corpuscular Volume 70 fL (80-100); Mean Platelet Volume 9.3 fL (9.1-12.4); NEUTROPHILS ABSOLUTE AUTO 10.23 K/mm3 (1.96-9.15); NEUTROPHILS PERCENT AUTO 76 % (41-73); Platelet Count 563 K/mm3 (150-400); RDW Coefficient Variation 17.3 % (11.7-14.2); Red Blood Cell Count 4.69 M/mm3 (4.30-5.90); White Blood Cell Count 13.52 K/mm3 (4.00-11.30)
[2024-07-09 17:46] LABS: Albumin, Blood 3.3 g/dL (3.4-5.0); Albumin/Globulin Ratio 0.7 (0.8-1.8); Bilirubin, Total 0.3 mg/dL (0.1-1.0); Bun/Creatinine Ratio 13.4 (12.0-20.0); Calcium, Blood 9.3 mg/dL (8.5-10.1); Creatinine, Blood 0.75 mg/dL (0.60-1.20); Globulin, Blood 4.7 g/dL (2.2-4.0); Potassium, Blood 3.8 mmol/L (3.5-5.5)
[2024-07-09 18:22] VITALS: BP 151/81
[2024-07-09 19:24] LABS: Source, Urine Voided
[2024-07-09 20:04] LABS: Appearance, Urine Clear (Clear); Bilirubin, Urine Neg (Neg); Blood, Urine Neg (Neg); Color, Urine Yellow (P-Yellow); Glucose Qualitative, Urine Neg (Neg); Ketones, Urine Neg (Neg); Leukocyte Esterase, Urine Neg (Neg); Nitrite, Urine Neg (Neg); Protein, Urine 1+ (Neg); Urobilinogen, Urine NORM (Normal); pH, Urine 6.5 (5.0-8.0)
[2024-07-09] MEDS ORDERED: [UNRECOGNIZED DRUG - SUPPLY] XX (20:30)
[2024-07-09] MEDS ORDERED: Magic Bullet10 MG PR (20:30)
[2024-07-09] MEDS ORDERED: Magnesium Citr296 ML PO (20:30)
== END 2024-07-09 20:40 | disposition home or self-care (01) ==
LOC: ER 16:35
PROVIDERS: Emergency Medicine
DX: K59.00 Constipation, unspecified (principal); I10 Essential (primary) hypertension; F17.210 Nicotine dependence, cigarettes, uncomplicated
CPT/HCPCS: 74177; 80053; 83690; 85025; 99284-25; Q9967